=== PATIENT | female | born 1975 | race Caucasian/White ===

== ENCOUNTER → 2018-07-10 08:57 | Outpatient (CLI) | payer OTHER, SELFPAY ==
[2018-07-10 10:57] LABS: FREE T4 0.76 ng/dL (0.76-1.46); TSH 9.31 uIU/mL (0.358-3.74)
== END ==
PROVIDERS: PCP Obstetrics & Gynecology Gynecology; Visit Provider Otolaryngology
DX: E03.9 Hypothyroidism, unspecified (principal)
CPT/HCPCS: 36415; 84439; 84443; 84481

== ENCOUNTER 2018-10-11 11:17 | Outpatient (CLI) | payer OTHER, SELFPAY ==
[2018-10-11 12:28] LABS: FREE T4 0.61 ng/dL (0.76-1.46); TSH 7.05 uIU/mL (0.358-3.74)
[2018-10-11 21:26] LABS: T3,Free 2.3 pg/ml (2.8-5.3)
== END 2018-10-11 11:37 ==
PROVIDERS: PCP Obstetrics & Gynecology Gynecology; Visit Provider Otolaryngology
DX: E06.3 Autoimmune thyroiditis (principal)
CPT/HCPCS: 36415; 84439; 84443; 84481

== ENCOUNTER 2019-01-04 21:17 | Emergency (ER) | payer OTHER, SELFPAY ==
[2019-01-04 21:22] VITALS: BP 126/68; PULSE 117; RESP 20; TEMP 37; O2SAT 100
--- NOTE | 2019-01-04 21:24 | W.ED.GENAD ---
Discharge Plan Disposition Patient Disposition: HOME Condition: Good Discharge Details Chief Complaint: Orthopedic Clinical Impression: Injury of right elbow Primary Care Provider: Regina Cole ED Provider: Luis Fernando Kirk Meds and New Rx's Prescriptions: Continued levothyroxine [Levoxyl] 150 mcg tablet 250 - 375 mcg PO DIRECTED RF: 0 venlafaxine 150 mg capsule,extended release 24hr 150 mg PO DAILY Qty: 30 RF: 5 prochlorperazine maleate 10 mg tablet 10 mg PO Q8H PRN Qty: 60 RF: 2 sumatriptan-naproxen [Treximet] 85-500 mg tablet 1 tab PO BID PRN (Reason: migraine headache) Qty: 12 RF: 11 zolpidem 5 MG tablet 5 mg PO HS Qty: 45 RF: 0 omeprazole 40 MG capsule,delayed release(DR/EC) 40 mg PO DAILY Qty: 90 RF: 4 diazepam 5 MG tablet 5 mg PO PRN Qty: 30 RF: 0 Discharge Instructions Additional Instructions: X-rays per my review do not reveal fracture. Films will be reviewed by radiology. Sling for comfort for the weekend. Ice and elevate. Motrin for pain. Return to ED for increasing pain swelling, neurologic changes, discoloration of hand. Follow-up with primary care in 1-2 weeks if not better. Referrals: Regina Cole MD [Primary Care Provider] - Medical Decision Making Slip and fall on ice with right elbow pain and forearm swelling. Tenderness over the radial head. Abrasion over the olecranon. Neurovascularly intact distally. Will give Motrin and sent for x-ray. X-ray per my review is negative for fracture. There is an anterior sail sign but no posterior sail sign. On reevaluation still has significant pain and tenderness around the elbow and proximal forearm. Remains neurovascularly intact. We will place her in a sling for the weekend. Ice and elevate. Motrin for pain. Return to emergency if increasing swelling, neurologic changes, discoloration of hand. Follow-up with primary care in 1-2-week if not better. HPI General Mode of arrival: ambulatory. Date/Time Provider Initiated Documentation: 01/04/19 21:23. Limitations to Documentation: no limitations. Information obtained by: patient. HPI Narrative: Patient presents to ED with right elbow pain after slip and fall on the ice. She did not strike her head. She did not have loss of consciousness. She did hurt her knee slightly but states that it is not really a problem. She is able to ambulate. Her elbow is very painful. She is able to move it but it causes significant pain. It is swollen quite a bit extending down into the forearm since the injury a couple hours ago. She states that her arm distal to the injury feels asleep. Related Data Home Medications Medication Instructions Recorded Confirmed diazepam 5 mg PO PRN #30 tab-cap 07/12/18 01/04/19 omeprazole 40 mg PO DAILY #90 tab-cap 07/12/18 01/04/19 zolpidem 5 mg PO HS #45 tab-cap 07/12/18 01/04/19 levothyroxine 150 mcg tablet 250 - 375 mcg PO DIRECTED 11/06/18 01/04/19 tab-cap prochlorperazine maleate 10 mg 10 mg PO Q8H PRN #60 tab 12/24/18 01/04/19 tablet sumatriptan 85 mg-naproxen 500 mg 1 tab PO BID PRN #12 tab-cap 19 01/04/19 tablet venlafaxine ER 150 mg 150 mg PO DAILY #30 cap 12/24/18 01/04/19 capsule,extended release 24 hr Previous Rx's Medication Instructions Recorded diazepam 5 mg PO PRN #30 tab-cap 07/12/18 omeprazole 40 mg PO DAILY #90 tab-cap 07/12/18 zolpidem 5 mg PO HS #45 tab-cap 07/12/18 prochlorperazine maleate 10 mg 10 mg PO Q8H PRN #60 tab 12/24/18 tablet sumatriptan 85 mg-naproxen 500 mg 1 tab PO BID PRN #12 tab-cap 12/24/18 tablet venlafaxine ER 150 mg 150 mg PO DAILY #30 cap 12/24/18 capsule,extended release 24 hr Allergies Allergy/AdvReac Type Severity Reaction Status Date / Time metoclopramide HCl Allergy Severe Unverified 01/04/19 21:37 [From Reglan] Review of Systems Constitutional Denies weakness Musculoskeletal Denies numbness and Reports tingling Comments: pain, swelling right elbow/forearm Integumentary/Breasts Reports wounds Neurologic Denies focal weakness, Denies numbness, Reports tingling and Denies weakness [facility] Medical History Anxiety with depression (Chronic) Insomnia (Chronic) Migraine headache without aura (Chronic) Migraine headache with aura (Chronic) Chronic migraine (Chronic) TMJ (temporomandibular joint syndrome) (Acute) 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 (Acute 07/12/18) Hypothyroid (Acute) Gastroesophageal reflux disease without esophagitis (Acute 07/07/17) Enlarged thyroid gland (Acute 09/29/17) Depression (Acute) Chronic fatigue (Acute 09/29/17) Abnormal Pap smear of cervix (Acute) Ureterolithiasis (Acute) Bacterial meningitis (Resolved) Enlarged thyroid gland (Resolved) GERD (gastroesophageal reflux disease) (Resolved) Hypothyroid (Resolved) Insomnia (Resolved) Migraine (Resolved) Viral meningitis (Resolved) Surgical History Tenosynovitis, de Quervain (Acute) section Endometrial Ablation (~2001) Ligation of fallopian tube PROCEDURES abdominoplasty Family History Mother Substance abuse Depression Hyperlipidemia Father Essential hypertension Heart disease Hyperlipidemia Sister Substance abuse Depression Sister Essential hypertension Depression Hyperlipidemia Grandfather Essential hypertension Heart disease Hyperlipidemia Stroke Grandfather Diabetes Essential hypertension Heart disease Hyperlipidemia Grandmother Essential hypertension Depression Heart disease Hyperlipidemia Grandmother Essential hypertension Heart disease Hyperlipidemia Stroke Daughter No problems noted. Daughter No problems noted. Daughter No problems noted. Daughter No problems noted. 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 animals: Yes pets and animals: cat(s), dog(s), horse(s) and farm animals Smoking and Tabacco status: Never alcohol intake: current alcohol intake frequency: a few times a month substance use type: does not use What is your relationship status?: Panel score (0-1 are the most socially isolated patients): 1 Seatbelt use: always Exam Const General: cooperative and comfortable Orientation: alert and oriented x3 HENMT Head: normocephalic and atraumatic Neck Neck: full ROM Skin Trauma: abrasion (right elbow) Neuro General: alert, oriented x3, gait normal, no focal motor deficits and CN's II-XI intact bilaterally Sensory Exam: no sensory deficits noted Extrem General: normal exam except as noted Right upper extremity: shoulder/upper arm (normal), elbow/forearm Details: abnormal to inspection, tenderness Location: of the radial head, swelling Location: of the proximal forearm, abnormal ROM and abrasion, wrist (normal) Details: radial pulse present and ulnar pulse present and hand (normal)
--- NOTE | 2019-01-04 21:30 | ED.GENADUL_ITS ---
Discharge Plan Disposition Patient Disposition: HOME Condition: Good Discharge Details Chief Complaint: Orthopedic Clinical Impression: Injury of right elbow Primary Care Provider: Regina Cole ED Provider: Luis Fernando Kirk Meds and New Rx's Prescriptions: Continued levothyroxine [Levoxyl] 150 mcg tablet 250 - 375 mcg PO DIRECTED RF: 0 venlafaxine 150 mg capsule,extended release 24hr 150 mg PO DAILY Qty: 30 RF: 5 prochlorperazine maleate 10 mg tablet 10 mg PO Q8H PRN Qty: 60 RF: 2 sumatriptan-naproxen [Treximet] 85-500 mg tablet 1 tab PO BID PRN (Reason: migraine headache) Qty: 12 RF: 11 zolpidem 5 MG tablet 5 mg PO HS Qty: 45 RF: 0 omeprazole 40 MG capsule,delayed release(DR/EC) 40 mg PO DAILY Qty: 90 RF: 4 diazepam 5 MG tablet 5 mg PO PRN Qty: 30 RF: 0 Discharge Instructions Additional Instructions: X-rays per my review do not reveal fracture. Films will be reviewed by radiology. Sling for comfort for the weekend. Ice and elevate. Motrin for pain. Return to ED for increasing pain swelling, neurologic changes, discoloration of hand. Follow-up with primary care in 1-2 weeks if not better. Referrals: Regina Cole MD [Primary Care Provider] - Medical Decision Making Slip and fall on ice with right elbow pain and forearm swelling. Tenderness over the radial head. Abrasion over the olecranon. Neurovascularly intact distally. Will give Motrin and sent for x-ray. X-ray per my review is negative for fracture. There is an anterior sail sign but no posterior sail sign. On reevaluation still has significant pain and tenderness around the elbow and proximal forearm. Remains neurovascularly intact. We will place her in a sling for the weekend. Ice and elevate. Motrin for pain. Return to emergency if increasing swelling, neurologic changes, discoloration of hand. Follow-up with primary care in 1-2-week if not better. HPI General Mode of arrival: ambulatory . Date/Time Provider Initiated Documentation: 01/04/19 21:23 . Limitations to Documentation: no limitations . Information obtained by: patient . HPI Narrative: Patient presents to ED with right elbow pain after slip and fall on the ice. She did not strike her head. She did not have loss of consciousness. She did hurt her knee slightly but states that it is not really a problem. She is able to ambulate. Her elbow is very painful. She is able to move it but it causes significant pain. It is swollen quite a bit extending down into the forearm since the injury a couple hours ago. She states that her arm distal to the injury feels asleep. Related Data Home Medications Medication Instructions Recorded Confirmed diazepam 5 mg PO PRN #30 tab-cap 07/12/18 01/04/19 omeprazole 40 mg PO DAILY #90 tab-cap 07/12/18 01/04/19 zolpidem 5 mg PO HS #45 tab-cap 07/12/18 01/04/19 levothyroxine 150 mcg tablet 250 - 375 mcg PO DIRECTED 11/06/18 01/04/19 tab-cap prochlorperazine maleate 10 mg 10 mg PO Q8H PRN #60 tab 12/24/18 01/04/19 tablet sumatriptan 85 mg-naproxen 500 mg 1 tab PO BID PRN #12 tab-cap 19 01/04/19 tablet venlafaxine ER 150 mg 150 mg PO DAILY #30 cap 12/24/18 01/04/19 capsule,extended release 24 hr Previous Rx's Medication Instructions Recorded diazepam 5 mg PO PRN #30 tab-cap 07/12/18 omeprazole 40 mg PO DAILY #90 tab-cap 07/12/18 zolpidem 5 mg PO HS #45 tab-cap 07/12/18 prochlorperazine maleate 10 mg 10 mg PO Q8H PRN #60 tab 12/24/18 tablet sumatriptan 85 mg-naproxen 500 mg 1 tab PO BID PRN #12 tab-cap 12/24/18 tablet venlafaxine ER 150 mg 150 mg PO DAILY #30 cap 12/24/18 capsule,extended release 24 hr Allergies Allergy/AdvReac Type Severity Reaction Status Date / Time metoclopramide HCl Allergy Severe Unverified 01/04/19 21:37 [From Reglan] Review of Systems Constitutional Denies weakness Musculoskeletal Denies numbness and Reports tingling Comments: pain, swelling right elbow/forearm Integumentary/Breasts Reports wounds Neurologic Denies focal weakness, Denies numbness, Reports tingling and Denies weakness [facility] Medical History Anxiety with depression (Chronic) Insomnia (Chronic) Migraine headache without aura (Chronic) Migraine headache with aura (Chronic) Chronic migraine (Chronic) TMJ (temporomandibular joint syndrome) (Acute) 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 (Acute 07/12/18) Hypothyroid (Acute) Gastroesophageal reflux disease without esophagitis (Acute 07/07/17) Enlarged thyroid gland (Acute 09/29/17) Depression (Acute) Chronic fatigue (Acute 09/29/17) Abnormal Pap smear of cervix (Acute) Ureterolithiasis (Acute) Bacterial meningitis (Resolved) Enlarged thyroid gland (Resolved) GERD (gastroesophageal reflux disease) (Resolved) Hypothyroid (Resolved) Insomnia (Resolved) Migraine (Resolved) Viral meningitis (Resolved) Surgical History Tenosynovitis, de Quervain (Acute) section Endometrial Ablation (~2001) Ligation of fallopian tube PROCEDURES abdominoplasty Family History Mother Substance abuse Depression Hyperlipidemia Father Essential hypertension Heart disease Hyperlipidemia Sister Substance abuse Depression Sister Essential hypertension Depression Hyperlipidemia Grandfather Essential hypertension Heart disease Hyperlipidemia Stroke Grandfather Diabetes Essential hypertension Heart disease Hyperlipidemia Grandmother Essential hypertension Depression Heart disease Hyperlipidemia Grandmother Essential hypertension Heart disease Hyperlipidemia Stroke Daughter No problems noted. Daughter No problems noted. Daughter No problems noted. Daughter No problems noted. 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 pets and animals: cat(s), dog(s), horse(s) and farm animals Smoking and Tabacco status: Never alcohol intake: current alcohol intake frequency: a few times a month substance use type: does not use What is your relationship status?: Panel score (0-1 are the most socially isolated patients): 1 Seatbelt use: always Exam Const General: cooperative and comfortable Orientation: alert and oriented x3 HENMT Head: normocephalic and atraumatic Neck Neck: full ROM Skin Trauma: abrasion (right elbow) Neuro General: alert, oriented x3, gait normal, no focal motor deficits and CN's II-XI intact bilaterally Sensory Exam: no sensory deficits noted Extrem General: normal exam except as noted Right upper extremity: shoulder/upper arm (normal), elbow/forearm Details: abnormal to inspection, tenderness Location: of the radial head, swelling Location: of the proximal forearm, abnormal ROM and abrasion, wrist (normal) Details: radial pulse present and ulnar pulse present and hand (normal)
[2019-01-04] MEDS: Ibuprofen 600 MG TAB PO (21:34)
--- NOTE | 2019-01-04 21:43 | DI.RAD_ITS ---
SYMPTOM/DIAGNOSIS: TRAUMA RIGHT ELBOW: No acute fracture or dislocation is identified. Soft tissues are unremarkable. IMPRESSION: Negative examination.
--- NOTE | 2019-01-04 22:09 | DI.VRAD_ITS ---
EXAM: XR Right Elbow Complete, 3 or more Views EXAM DATE/TIME: 01/04/2019 9:28 PM CLINICAL HISTORY: 43 years old, female; Pain; Elbow; Right; Patient HX: Fell on ice today TECHNIQUE: XR Right elbow, 3 or more views. COMPARISON: No relevant prior studies available. FINDINGS: Bones/joints: Typical for age. No evidence of acute fracture. Soft tissues: Unremarkable. IMPRESSION: No acute findings. Dictated and Authenticated by: Benja Emerson MD. Ordering:MALINA Gould MD
== END 2019-01-04 22:06 | disposition home or self-care (01) ==
PROVIDERS: Emergency Provider Emergency Medicine; PCP Obstetrics & Gynecology Gynecology
DX: S59.901A Unspecified injury of right elbow, initial encounter (principal); S50.311A Abrasion of right elbow, initial encounter; W00.0XXA Fall on same level due to ice and snow, initial encounter
CPT/HCPCS: 99283; 73080

== ENCOUNTER 2019-05-22 12:33 | Outpatient (CLI) | payer OTHER, SELFPAY ==
[2019-05-22 14:02] LABS: Anion Gap 9.8 mmol/L (3-11); BUN 13 mg/dL (7-18); CO2 27.2 mmol/L (21.0-32.0); CREATININE 0.73 mg/dL (0.55-1.02); Calcium 8.8 mg/dL (8.5-10.1); Chloride 102 mmol/L (98-107); Glucose 85 mg/dL (70-100); Sodium 139 mmol/L (136-145); TSH 10.06 uIU/mL (0.358-3.74)
[2019-05-22 19:50] LABS: FREE T4 0.62 ng/dL (0.76-1.46)
[2019-05-22 20:54] LABS: T3,Free 3.2 pg/ml (2.8-5.3)
[2019-05-22 21:11] LABS: T3, Total 119 ng/dl (97-169)
[2019-05-23 12:19] LABS: Thyroperoxidase Antibody >1300 U/mL (<61)
== END 2019-05-22 12:53 ==
PROVIDERS: PCP Obstetrics & Gynecology Gynecology; Visit Provider Otolaryngology
DX: E06.3 Autoimmune thyroiditis (principal)
CPT/HCPCS: 36415; 80048; 84439; 84443; 84480; 84481; 86376

== ENCOUNTER 2019-07-11 10:25 | Outpatient (CLI) | payer OTHER, SELFPAY ==
[2019-07-11 12:16] LABS: FREE T4 1.39 ng/dL (0.76-1.46); TSH 0.01 uIU/mL (0.36-3.74)
[2019-07-11 12:26] LABS: Vitamin D 25 Total 17.9 ng/ml (30-100)
[2019-07-11 12:55] LABS: Vitamin B12 334 pg/mL (193-986)
[2019-07-11 17:01] LABS: T3,Free 5.6 pg/ml (2.8-5.3)
[2019-07-12 20:42] LABS: Tissue Transglutaminase Ab IgA <1.2 U/mL
== END 2019-07-11 10:45 ==
PROVIDERS: PCP Obstetrics & Gynecology Gynecology
DX: E06.3 Autoimmune thyroiditis (principal); E03.8 Other specified hypothyroidism
CPT/HCPCS: 36415; 82306; 82607; 83516; 84439; 84443; 84481